=== PATIENT | male | born 1985 | race African-American/Black ===

== ENCOUNTER 2021-02-19 19:48 | Emergency (ER) | payer SELFPAY ==
[2021-02-19] MEDS ORDERED: Cephalexin 250 MG CAP ONE (20:34)
[2021-02-19] MEDS ORDERED: HYDROcodone/Acetaminophen 10/325 mg Tablet ONE (20:34)
[2021-02-19] MEDS ORDERED: Sulfameth/Trimethoprim DS 800-160mg TAB ONE (20:35)
== END 2021-02-19 21:42 | disposition home or self-care (01) ==
LOC: CSHERS 19:48
DX: S81.832A Puncture wound without foreign body, left lower leg, initial encounter (principal); W26.8XXA Contact with other sharp object(s), not elsewhere classified, initial encounter
CPT/HCPCS: 99283